=== PATIENT | male | born 1950 | race Caucasian/White ===

== ENCOUNTER 2017-01-02 10:15 | Day surgery (SDC) | payer OTHER ==
[~2017-01-02] VITALS: Ht 182.9 cm; Wt 98.9 kg
[~2017-01-02 10:15] MED LIST: 0.9% Sodium Chloride 1,000 ML IV SCH; MULT-1018 PO; Sodium Chloride LOK Flush 10 mL Syringe IV PRN; fentaNYL-PF 50 mCg/mL 2 mL Inj IVPUSH PRN
[2017-01-02 11:22] VITALS: BP 157/70; PULSE 54; RESP 16; O2SAT 100
[2017-01-02] MEDS ORDERED: 0.9% Sodium Chloride 1,000 ML IV ONE (12:07)
[2017-01-02 12:18] VITALS: BP 149/81; PULSE 57; RESP 12; O2SAT 95
[2017-01-02 12:32] VITALS: BP 152/69; PULSE 54; RESP 14; O2SAT 94
[2017-01-02 12:36] VITALS: BP 156/78; PULSE 57; RESP 14; O2SAT 98
--- NOTE | 2017-01-02 14:32 | ENDO ---
[address] [address] ENDOSCOPY PROCEDURE PATIENT: RAFIQ BATRES : 1950 MR#: [id number] ADMIT: 01/02/2017 JOB ID: [id number] DATE OF SERVICE: 01/02/2017 PROCEDURE PERFORMED: Colonoscopy. INDICATIONS: Screening. ASA CLASSIFICATION: The patient's ASA classification is II. MALLAMPATI SCORE: Mallampati score was 2. MEDICATIONS: 1. Versed 5 mg. 2. Fentanyl 100 mcg. INSTRUMENT USED: PCF-H180AL. PREPARATION QUALITY: Good. PROCEDURE DETAILS: After informed consent was obtained, the patient was brought into the GI suite, where he was placed on oxygen via nasal cannula and monitored with continuous pulse oximeter, telemetry, and blood pressure monitoring. A time-out was performed. Then, he was placed in the left lateral decubitus position and medications were administered for sedation. Digital rectal exam with palpation of the prostate was performed which was unremarkable. The colonoscope was then inserted into the rectum and advanced under direct visualization to the cecum, which was identified by the presence of the ileocecal valve and appendiceal orifice. Once the cecum was reached, the colonoscope was withdrawn back into the rectum, as the mucosa and lumen were examined. In the rectum, retroflexion was performed. Following retroflexion, remaining air in the rectum was suctioned, and procedure was completed. FINDINGS: 1. Scattered diverticula were seen throughout the entire colon. 2. In the transverse colon, there were two diminutive polyps removed with cold biopsy forceps. IMPRESSION: 1. Scattered diverticula throughout the colon. 2. Two transverse colon polyps. RECOMMENDATIONS: 1. Repeat colonoscopy pending polyp pathology results. 2. Fiber-rich diet. COMPLICATIONS: None. ESTIMATED BLOOD LOSS: Less than 5 mL.
--- NOTE | 2017-01-05 14:25 | PATH ---
SURGICAL PATHOLOGY Attending Physician:Vilma Maldonado CASE STATUS: Signed Out PATIENT NAME: RAFIQ BATRES PID: [id number] : 1950 DATE COLLECTED:01/02/2017 20:22 SPECIMEN: Colon, Biopsy CLINICAL HISTORY: 1). TRANSVERSE COLON POLYP FINAL DIAGNOSIS: 1.TRANSVERSE COLON POLYP: TUBULAR ADENOMA. ICD10 CODE D12.3 GROSS DESCRIPTION: The specimen is received in one formalin filled container labeled with the patient's name, sublabeled "transverse colon polyp" and consists of 2 portions of tissue which aggregate to 0.3 x 0.3 x 0.2 CM. The specimen is entirely submitted in one cassette. 01/02/2017 DAC MICRO DESCRIPTION: See diagnosis. ICD-9 CODES: CPT CODES: 1: 04677 Electronically Signed Out Marisa Menchaca MD [facility], [place] [address] Technical component performed at [facility], [address] [place] [address] Ave[address], [place], [address]
== END 2017-01-02 23:59 | disposition home or self-care (01) ==
LOC: END 10:15
PROVIDERS: ATTEND Internal Medicine Gastroenterology
DX: Z12.11 Encounter for screening for malignant neoplasm of colon (principal); D12.3 Benign neoplasm of transverse colon; K57.30 Diverticulosis of large intestine without perforation or abscess without bleeding
CPT/HCPCS: 45380; 99153; G0500; J2250; J3010; J7030